=== PATIENT | female | born 1970 | race Two or more races ===

== ENCOUNTER 2018-05-26 20:36 | Emergency (ER) | payer OTHER ==
[~2018-05-26] VITALS: Ht 160 cm; Wt 56.7 kg
--- NOTE | 2018-05-26 21:10 | NUR ---
Dr Hooks into eval patient
[2018-05-26] MEDS ORDERED: predniSONE 20 MG TABLET PO ONE (21:45)
[2018-05-26] MEDS ORDERED: CEPHALEXIN MONOHYDRATE 500 MG CAPSULE PO ONE (21:45)
[2018-05-26] MEDS ORDERED: CEPHALEXIN MONOHYDRATE 500 MG CAPSULE ONE (21:52)
[2018-05-26] MEDS ORDERED: predniSONE 20 MG TABLET ONE (21:52)
--- NOTE | 2018-05-26 21:55 | NUR ---
Patient discharged to home in stable conditon. Written and verbal after care instructions given. Patient verbalizes understanding of instructions. Pt ambulated out of ER with steady gait, no acute signs of distress, VSS, all belongings taken.
[2018-05-26 21:56] VITALS: BP 137/85
== END 2018-05-26 21:57 | disposition home or self-care (01) ==
LOC: ER 20:37
DX: I88.9 Nonspecific lymphadenitis, unspecified (principal)
CPT/HCPCS: 36415; 86403; 87070; A4663; J7512

== ENCOUNTER 2023-10-25 18:35 | Emergency (ER) | payer OTHER ==
[~2023-10-25] VITALS: Ht 160 cm; Wt 55.8 kg
[2023-10-25] MEDS ORDERED: LISI20TA30 PO (18:58)
[2023-10-25] MEDS ORDERED: METF-440 PO (18:58)
[2023-10-25] MEDS ORDERED: DAPA10TA PO (18:58)
[2023-10-25] MEDS ORDERED: [UNRECOGNIZED DRUG - CODE] HHN (18:58)
[2023-10-25 19:30] VITALS: O2SAT 99
[2023-10-25] MEDS ORDERED: CLONIDINE HCL 0.2 MG TABLET PO ONE (20:30)
[2023-10-25] MEDS ORDERED: CLONIDINE HCL 0.2 MG TABLET ONE (20:44)
[2023-10-25 20:45] VITALS: BP 159/88
[2023-10-25 21:20] LABS: *BILIRUBIN,URIN NEGATIVE (NEGATIVE); *BLOOD, URINE NEGATIVE (NEGATIVE); *CLARITY,URINE CLEAR (CLEAR); *COLOR,URINE YELLOW (YELLOW); *KETONES,URINE TRACE (NEGATIVE); *PROTEIN,URINE NEGATIVE (NEGATIVE); *UROBILINOGEN,URINE 0.2 E.U./dl (NORMAL); LEUKOCYTE ESTERASE ,URINE NEGATIVE (NEGATIVE); NITRITE, URINE NEGATIVE (NEGATIVE); PH,URINE 5.5 (5.0-8.0)
[2023-10-25 21:52] LABS: UGLUCOSE 2+ (NEGATIVE)
[2023-10-25 22:02] LABS: *AMPHETAMINE, URINE NEGATIVE (NEGATIVE); *BARBITURATE, URINE NEGATIVE (NEGATIVE); *BENZODIAZEPINE, URINE NEGATIVE (NEGATIVE); *CANNABINOID, URINE NEGATIVE (NEGATIVE); *COCCAINE, URINE NEGATIVE (NEGATIVE); *OPIATE, URINE NEGATIVE (NEGATIVE); *PHENCYCLIDINE SCREEN,URINE NEGATIVE (NEGATIVE)
[2023-10-25 22:14] LABS: FENTANYL, URINE NEGATIVE (NEGATIVE)
== END 2023-10-25 22:00 | disposition left against medical advice (07) ==
LOC: ER 18:35
DX: I10 Essential (primary) hypertension (principal); E11.65 Type 2 diabetes mellitus with hyperglycemia; R07.89 Other chest pain; Z79.899 Other long term (current) drug therapy
CPT/HCPCS: 71045; 93005; A4606; A4663

== ENCOUNTER 2024-07-21 20:01 | Emergency (ER) | payer MEDICAID, OTHER ==
[~2024-07-21 20:01] MED LIST: DAPA10TA PO; LISI20TA30 PO; METF-440 PO; [UNRECOGNIZED DRUG - CODE] HHN
== END 2024-07-21 21:00 | disposition left against medical advice (07) ==
LOC: ER 20:03
DX: R00.2 Palpitations (principal); Z53.21 Procedure and treatment not carried out due to patient leaving prior to being seen by health care provider